=== PATIENT | male | born 1945 | race Caucasian/White ===

== ENCOUNTER 2022-03-21 06:39 | Day surgery (SDC) | payer MEDICARE, MEDICAID ==
[~2022-03-21] VITALS: Ht 170.2 cm; Wt 90.9 kg
[~2022-03-21 06:39] MED LIST: SODIUM CHLORIDE 0.9% 1,000 ML IV ONE
[2022-03-21] MEDS ORDERED: LIDOCAINE 4% 50 ML SOLUTION TP ONE (06:40)
[2022-03-21] MEDS ORDERED: BENZOCAINE 20% 50 MCG/SPRAY 57 GM TP ONE (06:40)
[2022-03-21] MEDS ORDERED: ALBUTEROL SULFATE 2.5 MG/0.5 ML NEB SOLUTION NEB ONE (06:40)
[2022-03-21] MEDS ORDERED: LIDOCAINE 2% 11 ML JELLY TP ONE (06:40)
[2022-03-21 07:06] LABS: COVID AG,FIA SOURCE NASAL SWAB
[2022-03-21] MEDS ORDERED: MIDAZOLAM HCL 5 MG/ML VIAL ONE (07:30)
[2022-03-21] MEDS ORDERED: FentaNYL CITRATE PF 100 MCG/2 ML VIAL ONE (07:30)
[2022-03-21] MEDS ORDERED: METF-1185 PO (07:33)
[2022-03-21] MEDS ORDERED: AMLO-258 PO (07:33)
[2022-03-21] MEDS ORDERED: EMPA25TA3 PO (07:33)
[2022-03-21] MEDS ORDERED: ATOR40TA28 PO (07:33)
[2022-03-21] MEDS ORDERED: CARV6 PO (07:33)
[2022-03-21] MEDS ORDERED: FLUT44H IH ×2 (07:33)
[2022-03-21] MEDS ORDERED: CLOP75TA60 PO (07:33)
[2022-03-21] MEDS ORDERED: IRBE150T51 PO (07:33)
[2022-03-21] MEDS ORDERED: LINA5TAB PO (07:33)
[2022-03-21] MEDS ORDERED: HYDR25TA2 PO (07:33)
[2022-03-21] MEDS ORDERED: SODIUM CHLORIDE 0.9% 1,000 ML ONE (07:43)
[2022-03-21 08:06] LABS: GLUCOMETER DEV NAME(LOC) SDS.; GLUCOSE,POINT OF CARE 132 MG/DL (70-110)
[2022-03-21] MEDS ORDERED: MethylPREDNISolone SOD SUCC 125 MG/2 ML VIAL IVP ONE (10:00)
[2022-03-21] MEDS ORDERED: MethylPREDNISolone SOD SUCC 125 MG/2 ML VIAL ONE (10:16)
[2022-03-21] MEDS ORDERED: OXYGEN THERAPY IH SCH (20:00)
== END 2022-03-21 12:35 | disposition home or self-care (01) ==
LOC: SURGERY 06:39
PROVIDERS: ATTEND Internal Medicine Critical Care Medicine
DX: J38.4 Edema of larynx (principal); B37.0 Candidal stomatitis; Z79.899 Other long term (current) drug therapy; I10 Essential (primary) hypertension; Z79.01 Long term (current) use of anticoagulants; Z86.73 Personal history of transient ischemic attack (TIA), and cerebral infarction without residual deficits; Z98.890 Other specified postprocedural states
CPT/HCPCS: 31623; 82962; 87206; 87101; 87220; 87070; 31624; 71045; 87015; 87426; 93005; J3010; J2930; J2250; Q9967; J7030; C9803; 88112; 88305; 88312; J7613; Z7610